=== PATIENT | female | born 1990 | race Caucasian/White ===

== ENCOUNTER 2020-03-01 09:57 | Emergency (ER) | payer OTHER ==
[~2020-03-01] VITALS: Ht 172.7 cm; Wt 77.1 kg
[2020-03-01 10:11] VITALS: BP 142/80
--- NOTE | 2020-03-01 10:19 | ER.PDOC ---
General Chief Complaint: Requesting Medical Care Stated Complaint: EYE PROBLEMS Time seen by MD: 10:11 Source: patient Exam Limitations: no limitations History of Present Illness Initial Comments Patient states GI secretions from COVID+ patient splashed into her left eye 02/27. She irrigated eye with 30 cc NS. Since that time, both eyes have experienced swollen lids. She denies visual change ore eye pain. No redness to the eye itself. Timing/Duration: gradual Associated Symptoms: burning, itching, eyelid swelling Location: both eyes Severity: mild, moderate Apparent Inury: No Context: chemical exposure (body fluid exposure) Where: work Past Medical History Medical History: no pertinent history Surgical History: no surgical history Family History Significant Family History: no pertinent family hx Social History Smoking: non-smoker Alcohol Use: none Drug Use: none Constitutional: denies no symptoms reported, denies see HPI, denies chills, denies diaphoresis, denies fever, denies malaise, denies weakness, denies other Eyes: see HPI Ears: denies no symptoms reported, denies see HPI, denies dizziness, denies pain, denies tinnitus, denies bloody discharge, denies clear discharge, denies purulent discharge, denies serosanguinous discharge, denies previous injury, denies other Nose: denies no symptoms reported, denies see HPI, denies clots, denies congestion, denies epistaxis, denies pain, denies bloody discharge, denies clear discharge, denies purulent discharge, denies serosanguinous discharge, denies previous injury, denies other Mouth: denies no symptoms reported, denies see HPI, denies clots, denies loose teeth, denies pain, denies swelling, denies bloody discharge, denies clear discharge, denies purulent discharge, denies serosanguinous discharge, denies previous injury, denies other Throat: denies no symptoms reported, denies see HPI, denies pain, denies swelling, denies discharge, denies neck stiffness, denies aphonia, denies hoarse, denies muffled, denies painful swallowing, denies difficulty with fluids, denies previous injury, denies other Respiratory: denies no symptoms reported, denies see HPI, denies cough, denies orthopnea, denies shortness of breath, denies stridor, denies wheezing, denies other Cardiovascular: denies no symptoms reported, denies see HPI, denies chest pain, denies edema, denies palpitations, denies syncope, denies other Gastrointestinal: denies no symptoms reported, denies see HPI, denies abdominal pain, denies constipation, denies diarrhea, denies nausea, denies vomiting, denies other Musculoskeletal: denies no symptoms reported, denies see HPI, denies back pain, denies gout, denies joint pain, denies joint swelling, denies muscle pain, denies muscle stiffness, denies neck pain, denies other Skin: denies no symptoms reported, denies see HPI, denies change in color, denies change in hair/nails, denies dryness, denies lesions, denies lumps, denies rash, denies other Neurological: denies no symptoms reported, denies see HPI, denies anxiety, denies depressed, denies emotional problems, denies headache, denies numbness, denies paresthesia, denies pre-existing deficit, denies seizure, denies tingling, denies tremors, denies weakness, denies other All Other Systems: Reviewed and Negative Physical Exam General Appearance: alert, no distress Visual Acuity: no globe trauma Eyelid: (R) edema, (L) edema, (L) erythema Conjunctiva/Sclera: nml inspection Corneas: nml inspection EOM's: intact, no nystagmus Pupils: PERRL, nml accommodation Head/ENT: nml inspection, pharynx nml Skin Exam: Normal Color, Warm/Dry Neck/Back: nml inspection, painless ROM Resp/CVS: no resp distress, lungs clear, heart sounds nml, reg. rate & rhythm Abdomen: non-tender, no organomegaly NEURO/PSYCH: oriented X3, mood/effect nml Results/Orders Results/Orders Orders - DAT JOE DO Hiv Panel 1,2(Ml) (03/01/20 10:21) Hepatitis B Core Antibody (03/01/20 10:21) Hepc Ab Test/Hcv Test (03/01/20 10:21) RPR (03/01/20 10:21) Covid19 Antigen Beatriz Alessandra (03/01/20 10:21) Comprehensive Metabolic Panel (03/01/20 10:21) Prednisone (Prednisone) (03/01/20 10:40) Vital Signs Date Time Temp Pulse Resp B/P (MAP) Pulse Ox O2 Delivery O2 Flow Rate FiO2 03/01/20 11:20 69 19 117/76 (90) 98 Room Air 03/01/20 10:11 98.8 84 20 142/80 (100) 98 Room Air 03/01/20 10:11 98.8 84 20 03/01/20 10:11 98.8 84 20 98 Administered Medications Medications (Trade) Dose Ordered Sig/[place] Route PRN Reason Start Time Stop Time Status Last Admin Dose Admin Prednisone (Prednisone) 40 mg STAT STAT PO 03/01/20 10:40 03/01/20 10:41 UNV 03/01/20 10:55 40 MG Laboratory Tests Test 03/01/20 10:43 Sodium Level 141 mmol/L (132-145) Potassium Level 3.7 mmol/L (3.6-5.2) Chloride Level 106.0 mmol/L (96-109) Carbon Dioxide Level 25.8 mmol/L (20.0-32) Anion Gap 12.9 Blood Urea Nitrogen 15 mg/dL (7-18) Creatinine 0.96 mg/dL (0.59-1.40) Estimated GFR () 82.0 (>/=60) Est GFR (CKD-EPI)(Non-Afr [place]) 67.8 (>/=60) BUN/Creatinine Ratio 15.0 Glucose Level 93 mg/dL (70-110) Calcium Level 8.9 mg/dL (8.4-10.5) Total Bilirubin 0.3 mg/dL (0.2-1.0) Aspartate Amino Transferase (AST) 12 U/L (0-35) Alanine Aminotransferase (ALT) 20 U/L (12-78) Alkaline Phosphatase 50 U/L (50-136) Total Protein 6.8 g/dL (6.4-8.2) Albumin 3.7 g/dL (3.4-5.0) Globulin 3.1 Albumin/Globulin Ratio 1.193 Hepatitis C Antibody Pending HIV-1 Antibody NON-REACTIVE (NONREACTIVE) HIV-2 Antibody NON-REACTIVE (NONREACTIVE) Progress Progress Discussed protocol with Lissy (employee health nurse) per post exposure. HIV negative. COVID19 negative. ER DEPART Departure Time of Disposition: 11:30 Disposition: 01 HOME, SELF-CARE Impression: Primary Impression: Exposure to body fluid Additional Impression: Conjunctivitis Condition: Stable Patient Instructions: Body Fluid Exposure, Conjunctivitis (Viral and Bacterial) Referrals: PCP,UNKNOWN (PCP) PRIMARY CARE PROVIDER Additional Instructions: Off work until Hepatitis B/C results are known. Call Thursday and speak with Iraida or Lissy for results. You will want to call your company and tell them you will not be able to work until results come in. Take steroids until gone. Use Erythromycin ointment as directed x 5 days. Return to ER if you have worsening symptoms, acute visual change or any other concerns. You will need to dispose of this pair of contact lenses or risk re-infection. Duration or Time Spent with Pa: 25 min Problem Qualifiers Additional Impression: Conjunctivitis Conjunctivitis type: acute Acute conjunctivitis type: unspecified Laterality: bilateral Qualified Codes: H10.33 - Unspecified acute conjunctivitis, bilateral DAT JOE DO Mar 01, 2020 10:18
[2020-03-01] MEDS ORDERED: PREDNISONE PO STA (10:40)
[2020-03-01] MEDS ORDERED: PREDNISONE ONE ×2 (10:48→10:53)
[2020-03-01 11:14] LABS: CALCIUM 8.9 mg/dL (8.4-10.5); CARBON DIOXIDE 25.8 mmol/L (20.0-32)
[2020-03-01 11:20] VITALS: BP 117/76
== END 2020-03-01 11:45 | disposition home or self-care (01) ==
LOC: ER 09:57
DX: H10.9 Unspecified conjunctivitis (principal); Z77.21 Contact with and (suspected) exposure to potentially hazardous body fluids; Z20.828 Contact with and (suspected) exposure to other viral communicable diseases
CPT/HCPCS: 36415; 80053; 86318; 86592; 86706; 86803; 87426; 99283; J7512 ×2